=== PATIENT | female | born 1950 | race Caucasian/White ===

== ENCOUNTER 2022-02-21 22:33 | Emergency (ER) | payer MEDICARE ==
[~2022-02-21] VITALS: Ht 154.9 cm; Wt 63.6 kg
[2022-02-21 22:42] VITALS: BP 141/87
[2022-02-21] MEDS ORDERED: ATOR20TA86 PO (22:44)
[2022-02-21] MEDS ORDERED: FAMO20 PO (22:44)
[2022-02-21] MEDS ORDERED: LISI-657 PO (22:44)
[2022-02-21] MEDS ORDERED: FLUO20CA36 PO (22:44)
[2022-02-21] MEDS ORDERED: CALC-1038 PO (22:44)
== END 2022-02-21 23:30 | disposition home or self-care (01) ==
LOC: EMS 22:36
DX: H11.31 Conjunctival hemorrhage, right eye (principal); J45.909 Unspecified asthma, uncomplicated; E78.00 Pure hypercholesterolemia, unspecified; I10 Essential (primary) hypertension; Z90.710 Acquired absence of both cervix and uterus; Z98.890 Other specified postprocedural states
CPT/HCPCS: 99281; Z7502